=== PATIENT | female | born 1955 | race Caucasian/White ===

== ENCOUNTER → 2023-04-01 | Outpatient (REF) | payer MEDICARE, OTHER ==
[~2023-04-01] MED LIST: ACYCLOVIR800 MG PO; BENADRYL25 M1 PO; HYDROCODON-ACE1 EA11 PO; HYDROCORTISONE30 GM TOP; HYDROXYZINE HCL25 MG PO; IMMUNICARE CAP1 EACH PO; MELOXICAM7.5 MG PO; PROBIOTIC & AC1 EACH PO; TOPROL XL25 MG PO; TURMERIC 450-51 EACH PO; VALTREX1000 MG PO; VITAMIN B-121000 MCG PO; VITAMIN D3 COM1 EACH PO; [UNRECOGNIZED DRUG - OTHER] PO; [UNRECOGNIZED DRUG - REMARK]
== END ==
LOC: MAMMO 12:44
PROVIDERS: ATTEND Family Medicine
DX: R92.8 Other abnormal and inconclusive findings on diagnostic imaging of breast (principal)

== ENCOUNTER → 2024-04-07 | Outpatient (REF) | payer MEDICARE, OTHER | LOC: MAMMO 13:27 | PROVIDERS: ATTEND Family Medicine | DX: Z12.31 Encounter for screening mammogram for malignant neoplasm of breast (principal) | CPT/HCPCS: 77067 ==

== ENCOUNTER 2024-11-10 18:07 | Emergency (ER) | payer MEDICARE, OTHER ==
[~2024-11-10] VITALS: Ht 167.6 cm; Wt 64.4 kg
[2024-11-10 19:15] VITALS: PULSE 66; RESP 17; TEMP 98.5
[2024-11-10] MEDS ORDERED: MELOXICAM7.5 MG PO (21:37)
[2024-11-10 21:48] VITALS: BP 145/77; PULSE 70; RESP 16; TEMP 98.5; O2SAT 99
== END 2024-11-10 21:50 | disposition home or self-care (01) ==
LOC: ER 20:08
DX: M17.12 Unilateral primary osteoarthritis, left knee (principal); M25.562 Pain in left knee; I10 Essential (primary) hypertension
CPT/HCPCS: 93926; 93971; 99284